=== PATIENT | female | born 1990 | race Caucasian/White ===

== ENCOUNTER 2023-09-28 11:01 | Emergency (ER) | payer MEDICAID, SELFPAY ==
--- NOTE | ~2023-09-28 | CT_ITS ---
EXAMINATION: CT ANGIOGRAM OF THE CHEST WITH AND WITHOUT CONTRAST (CT PULMONARY ANGIOGRAM FOR PE) CLINICAL INFORMATION: Chest pain and dyspnea COMPARISON: None available. TECHNIQUE: Prior to contrast administration, noncontrast localization images were obtained. Subsequently, multidetector volumetric imaging was performed from the thoracic inlet to below the diaphragms following the administration of 65 mL Omnipaque 350 intravenous contrast. No contrast reaction reported Sagittal, coronal, and MIP oblique sagittal reformatted images were obtained on the CT workstation, uploaded to PACS, and reviewed. This CT examination was performed using dose optimization techniques as appropriate, variously including the following: *Automated exposure control *Adjustment of mA and/or kV according to patient size (this includes techniques or standardized protocols for targeted exams where dose is matched to indication/reason for exam; i.e. extremities or head) *Use of iterative reconstruction technique Total exam dose-length product 268 mGy-cm FINDINGS: QUALITY OF STUDY/CONTRAST BOLUS: Satisfactory. PULMONARY ARTERIES: No pulmonary emboli. THORACIC AORTA: No aneurysm. LUNG: No focal consolidation, nodules or masses. PLEURA: No pleural effusion or pneumothorax. MEDIASTINUM: Normal heart size. No pericardial effusion. No hilar or mediastinal lymphadenopathy. No evidence of septal bowing or right heart strain. CORONARY ARTERY CALCIFICATION: None visualized on this study. CHEST WALL/AXILLA: No axillary or internal mammary lymphadenopathy. OSSEOUS STRUCTURES: No acute or suspicious osseous abnormality. UPPER ABDOMEN: Unremarkable. No reflux of contrast into the hepatic veins to suggest elevated right heart pressures. CT/CT angio chest PE protocol IMPRESSION: No evidence of acute pulmonary embolus. No acute process. VTE: negative.
--- NOTE | ~2023-09-28 | XR_ITS ---
EXAMINATION: XR CHEST CLINICAL INFORMATION: Chest pain COMPARISON: None available. TECHNIQUE: 2 views of the chest were obtained. FINDINGS: No significant abnormality is noted involving the heart, lungs, mediastinum, bony thorax or soft tissues. XR/XR chest 2V IMPRESSION: Unremarkable examination.
[2023-09-28 11:03] VITALS: BP 118/70; PULSE 76; RESP 20; TEMP 36.6; O2SAT 98; BMI 31.7
--- NOTE | 2023-09-28 11:06 | ED.CHESTPAIN ---
HPI - Chest Pain General Chief Complaint: Chest Pain Stated Complaint: sternum pain Time Seen by Provider: 09/28/23 17:10 History of Present Illness HPI narrative: Patient is a 33-year-old female with a history of chest pain that is mid chest. Worse with deep breath. Associated with some nausea some shortness of breath. Been ongoing for about an hour. Patient drove back from [place]. Been having this pain for the last 2 days. Reappeared again approximately an hour ago. Status post cholecystectomy. Patient has no history of diabetes. No history of hypertension. No history of high cholesterol. No history of smoking. No history of IA. No family history of IA. has no leg swelling. It is not on any control. Patient claims that when she had her cholecystectomy she had pain that was similar but it was lower down in her abdomen. Patient denies any pain going to the back. No history of sudden in the family. Does not think she is as she is having her menstruation at the current time. Related Data Allergies Allergy/AdvReac Type Severity Reaction Status Date / Time No Known Allergies Allergy Verified 09/28/23 11:07 Review of Systems Review of Systems: Positive chest pain Yes all other systems are reviewed and are negative PMFSH Past Medical History Attestation statement: The following information was validated with the patient. Social History Social History Alcohol intake: never Smoked in Last 30 Days: No Use of substances other than those prescribed or required for medical reasons: No Advance Directives: No Advance Directives Information Provided: Yes Physical Exam Vital Signs: Vital Signs: Last Vital Signs Temp 98.2 F 09/28/23 17:15 Pulse 53 09/28/23 17:15 Resp 18 09/28/23 17:15 BP 109/55 L 09/28/23 17:15 Pulse Ox 100 09/28/23 17:15 O2 Del Method Room Air 09/28/23 17:15 BMI result Body Mass Index 31.7 Appearance: Alert. Oriented X3. No acute distress. Eyes: Pupils equal, round and reactive to light. ENT: Pharynx normal. Neck: Normal inspection. Neck supple. No lymph nodes noted. No crepitus CVS: Normal heart rate and rhythm. Pulses normal. Normal S1 and S2 Respiratory: No respiratory distress. Breath sounds normal. No Wheezing. No rales Abdomen: Soft and nontender. No rigidity. No distention. good BS x4 Skin: Skin warm and dry. Normal skin color. Normal skin turgor. Extremities: No lower extremity edema. Neurovascular intact to all extremities. No Lacerations. No Rash Neuro: Oriented X 3. No motor deficit. No sensory deficit. Moving all extermities. No slurred speech Course Course Course Narrative: This is a Rapid Medical Examination (RME) in triage, full HPI, ROS, assessment and plan per primary provider in the Main ED. 33 y/o female with history of cholecystecomty 1 year ago presents to the ER for evaluation of sharp central chest pain in her sternum area that started constantly 1 hour ago associated with nausea, SOB and diaphoresis. Had episodes yesterday but self resolved. Pain similar to when she had emergency gallbladder surgery. Worried it might be her appendix. Plan: EKG, CXR, labs Medications Administered Discontinued Medications Generic Name Dose Route Start Last Admin Trade Name Freq PRN Reason Stop Dose Admin Aspirin 324 mg 09/28/23 17:38 09/28/23 17:56 Aspirin 81 Mg Tab.Chew PO 09/28/23 17:39 324 mg ONCE ONE Administration Iohexol 65 ml 09/28/23 19:35 09/28/23 19:36 Iohexol 350 Mg/Ml 100 Ml Infus..Btl IV 09/28/23 19:36 65 ml ONCE ONE Administration Medical Decision Making Medical Decision Making [facility] Narrative: 33-year-old female presents today with having chest pain mid chest worsened with deep breath has been ongoing for the last 2 days patient had a long distance travel over the last 3 days. There has no leg swelling. Patient has no history of diabetes, hypertension, high cholesterol, smoking, mi no cardiac risk factor 33 years old EKG by my interpretation shows a sinus rhythm heart rate is 60 VT QRS QTC within normal limits is no acute ST segment elevation. A CTA of the chest is done as patient had long distance travel was now having chest pain when she takes deep breath. The CTA was negative for any acute evidence of pneumothorax no evidence for PE no pneumonia no rib fractures. Patient's heart score is less than 3. Will have patient follow-up with cardiology on an outpatient basis for her chest pain. Her LFTs are normal there has no evidence for biliary disease. Differential Diagnosis Differential Diagnoses: The differential diagnosis associated with the presentation includes ACS, pneumonia, pneumothorax, PE Admission/Observation Consideration of admission/observation: Escalation of care including admission/observation considered Symptoms improving no need for admission Lab Data MDM Lab Attestation statement: I reviewed the patient's lab results. 09/28/23 11:27 09/28/23 11:27 Labs: Lab Results 09/28/23 09/28/23 Range/Units 11:27 16:55 WBC 6.8 (4.8-10.8) X10*3/uL RBC 4.60 (4.20-5.50) X10*6/uL Hgb 13.2 (12.0-16.0) g/dl Hct 38.3 (37.0-47.0) % MCV 83.3 (80.0-98.0) fL MCH 28.7 (27.0-33.0) pg MCHC 34.5 (31.0-35.0) g/dl RDW 12.6 (11.0-16.0) % Plt Count 269 (160-400) X10*3/uL MPV 9.0 L (9.4-12.3) fL Immature Gran % (Auto) 0.1 (0.0-0.4) % Neut % (Auto) 53.9 (45-73) % Lymph % (Auto) 36.1 (20-40) % [place] % (Auto) 8.0 (2-11) % Eos % (Auto) 1.5 (0-4) % Baso % (Auto) 0.4 (0-2) % Lymph # (Auto) 2.4 (1.2-4.9) X10*3/uL [place] # (Auto) 0.5 (0.1-1.2) X10*3/uL Eos # (Auto) 0.1 (0.0-0.4) X10*3/uL Baso # (Auto) 0.0 (0.0-0.2) X10*3/uL Abs Immat Gran (auto) 0.01 (0.00-0.03) X10*3/uL Absolute Neuts (auto) 3.6 (2.0-8.3) x10*3/uL Absolute Nucleated RBC 0.000 (0.0-0.012) X10*3/uL Nucleated RBC % (auto) 0.0 (0.0-0.2) /100WBC Sodium 141 (135-145) mmol/L Potassium 3.7 (3.3-5.1) mmol/L Chloride 107 (96-108) mmol/L Carbon Dioxide 25 (22-29) mmol/L Anion Gap 13 (12-20) BUN 10 (9-16) mg/dL Creatinine 0.82 (0.5-1.4) mg/dL Estim Creat Clear Calc 94.8 Estimated GFR > 60 Random Glucose 102 (60-115) mg/dL Calcium 9.5 (8.4-10.2) mg/dL Magnesium 2.0 (1.6-2.6) mg/dL Total Bilirubin 0.2 (0.0-1.0) mg/dL Direct Bilirubin < 0.2 (0.0-0.5) mg/dL AST 25 (5-31) U/L ALT 23 (0-31) U/L Alkaline Phosphatase 65 (39-117) U/L Troponin I High Sens < 2.7 < 2.7 (<3.5-17.0) ng/L Total Protein 7.5 (6.5-8.0) g/dL Albumin 4.3 (3.5-5.0) g/dL Lipase 18 (8-78) U/L Beta HCG, Quant < 2 mIU/mL Independent Interpretation I performed an independent interpretation of an: EKG (Sinus heart rate is 60 VT QRS QTC within normal limits is no acute ST segment elevation) and Plain X-Ray (Chest x-ray is grossly negative) Radiology Impression Discussion of test interpretation with radiology: I have reviewed the radiologist's reading. Social Determinants Patient?s care significantly limited by Social Determinants of Health including: Problems related to primary support group Discharge Plan Discharge Clinical Impression: Chest pain Patient Disposition: Home, Self-Care Instructions: Chest Pain (ED) Referrals: Bin Abbott MD [Physician] - 10/02/23 Print Language: [place]
--- NOTE | 2023-09-28 11:08 | ECG_ITS ---
Test Reason : CHEST PAIN Blood Pressure : / mmHG Vent. Rate : 056 BPM Atrial Rate : 056 BPM P-R Int : 162 ms QRS Dur : 086 ms QT Int : 438 ms P-R-T Axes : 055 079 063 degrees QTc Int : 422 ms Sinus bradycardia Otherwise normal ECG No previous ECGs available Referred By: Debra Kirk Electronically Signed By:PATTI REHMAN MD
[2023-09-28 11:35] LABS: Basophils Percent Auto 0.4 % (0-2); Eosinophils Absolute Auto 0.1 X10*3/uL (0.0-0.4); Eosinophils Percent Auto 1.5 % (0-4); Hematocrit 38.3 % (37.0-47.0); Hemoglobin 13.2 g/dl (12.0-16.0); Imm Gran Abs Auto 0.01 X10*3/uL (0.00-0.03); Imm Gran Pct Auto 0.1 % (0.0-0.4); Lymphocytes Absolute Auto 2.4 X10*3/uL (1.2-4.9); Lymphocytes Percent Auto 36.1 % (20-40); MANUAL DIFF FLAG NO; Mean Corpuscular HGB Conc 34.5 g/dl (31.0-35.0); Mean Corpuscular Hemoglobin 28.7 pg (27.0-33.0); Mean Corpuscular Volume 83.3 fL (80.0-98.0); Monocytes Absolute Auto 0.5 X10*3/uL (0.1-1.2); Neutrophils Absolute Auto 3.6 x10*3/uL (2.0-8.3); Neutrophils Percent Auto 53.9 % (45-73); Platelet Count 269 X10*3/uL (160-400); Red Cell Distribution Width 12.6 % (11.0-16.0); White Blood Count 6.8 X10*3/uL (4.8-10.8)
[2023-09-28 11:58] LABS: Alanine Aminotransferase 23 U/L (0-31); Albumin Level 4.3 g/dL (3.5-5.0); Alkaline Phosphatase 65 U/L (39-117); Anion Gap 13 (12-20); Aspartate Amino Transferase 25 U/L (5-31); Bilirubin Direct < 0.2 mg/dL (0.0-0.5); Bilirubin Total 0.2 mg/dL (0.0-1.0); Blood Urea Nitrogen 10 mg/dL (9-16); Calcium 9.5 mg/dL (8.4-10.2); Carbon Dioxide 25 mmol/L (22-29); Chloride 107 mmol/L (96-108); Creatinine Clr Calc Pharmacy 94.8; Estimated Glomerular Filt Rate > 60; Glucose Random 102 mg/dL (60-115); Potassium 3.7 mmol/L (3.3-5.1); Sodium 141 mmol/L (135-145); Total Protein 7.5 g/dL (6.5-8.0)
[2023-09-28 12:09] LABS: Troponin-I High Sensitivity < 2.7 ng/L (<3.5-17.0)
[2023-09-28 17:15] VITALS: BP 109/55; PULSE 53; RESP 18; TEMP 36.8; O2SAT 100
[2023-09-28 17:16] VITALS: PULSE 56
[2023-09-28 17:22] LABS: Troponin-I High Sensitivity < 2.7 ng/L (<3.5-17.0)
[2023-09-28] MEDS: Aspirin 81 MG TAB.CHEW 324 MG PO (17:56)
[2023-09-28 18:28] LABS: Lipase 18 U/L (8-78)
[2023-09-28 18:37] LABS: HCG Quantitative < 2 mIU/mL
[2023-09-28] MEDS: iohexoL 350 MG/ML 100 ML INFUS..BTL 65 ML IV (19:36)
[2023-09-28 22:59] VITALS: BP 109/60; PULSE 65; RESP 16; TEMP 36.8; O2SAT 98
== END 2023-09-28 23:01 | disposition home or self-care (01) ==
PROVIDERS: Physician Assistant; Emergency Provider Emergency Medicine Emergency Medical Services; PCP Registered Nurse
DX: R07.89 Other chest pain (principal); R11.2 Nausea with vomiting, unspecified; R06.02 Shortness of breath; Z79.899 Other long term (current) drug therapy
CPT/HCPCS: 36415; 71046; 71275; 80048; 80076; 83690; 83735; 84484; 84702; 85025; 93005; 99283; 99284; 99285; Q9967

== ENCOUNTER → 2023-09-28 11:08 | Outpatient (BNV) | payer MEDICAID, SELFPAY | PROVIDERS: Emergency Provider Emergency Medicine Emergency Medical Services; PCP Registered Nurse; Visit Provider Internal Medicine Cardiovascular Disease | DX: R00.1 Bradycardia, unspecified (principal) | CPT/HCPCS: 93010 ==